=== PATIENT | female | born 1960 | race Caucasian/White ===

== ENCOUNTER → 2024-09-14 | Outpatient (CLI) | payer MEDICARE ==
[~2024-09-14] MED LIST: AMITRIPTYLINE100 M2; BUPRENORPHIN-N1 EAC1; DULO60; FLUT1DIS5; MELATONIN5 M1; POTA10T; TAMS.4ER
[2024-09-21 12:05] LABS: HPV HIGH RISK BY TMA Not Detected; HPV SOURCE Cervical
== END ==
LOC: LAB 11:21 → LAB SHORT 11:21
PROVIDERS: Family Medicine
DX: Z01.419 Encounter for gynecological examination (general) (routine) without abnormal findings (principal)
CPT/HCPCS: 87624; G0123

== ENCOUNTER → 2024-10-05 | Outpatient (CLI) | payer MEDICARE | LOC: LAB 16:09 → LAB SHORT 16:09 | DX: N39.0 Urinary tract infection, site not specified (principal) | CPT/HCPCS: 87086 ==

== ENCOUNTER 2025-08-19 09:03 | Day surgery (SDC) | payer MEDICARE ==
[~2025-08-19] VITALS: Ht 154.9 cm; Wt 85.7 kg
[2025-08-19] MEDS ORDERED: ACET500 (09:29)
[2025-08-19] MEDS ORDERED: METO50ER (09:29)
[2025-08-19] MEDS ORDERED: BACL10 (09:29)
[2025-08-19] MEDS ORDERED: FURO40 (09:30)
[2025-08-19 11:46] VITALS: BP 113/82
== END 2025-08-19 11:40 | disposition home or self-care (01) ==
LOC: ORSCSDS 09:03
PROVIDERS: Internal Medicine Gastroenterology
PROC: 0DBL8ZX Excision of Transverse Colon, Via Natural or Artificial Opening Endoscopic, Diagnostic (ICD-10-PCS; principal; 2025-08-19 10:30)
PROC: 0DBN8ZX Excision of Sigmoid Colon, Via Natural or Artificial Opening Endoscopic, Diagnostic (ICD-10-PCS; principal; 2025-08-19 10:30)
PROC: 0DBM8ZX Excision of Descending Colon, Via Natural or Artificial Opening Endoscopic, Diagnostic (ICD-10-PCS; principal; 2025-08-19 10:30)
DX: Z12.11 Encounter for screening for malignant neoplasm of colon (principal); Z86.0101 Personal history of adenomatous and serrated colon polyps; D12.3 Benign neoplasm of transverse colon; D12.5 Benign neoplasm of sigmoid colon; K63.5 Polyp of colon; K64.4 Residual hemorrhoidal skin tags; I10 Essential (primary) hypertension; G47.33 Obstructive sleep apnea (adult) (pediatric); J45.909 Unspecified asthma, uncomplicated; M79.7 Fibromyalgia; Z79.899 Other long term (current) drug therapy
CPT/HCPCS: 88305; J2704; J7120